=== PATIENT | male | born 1960 | race Caucasian/White ===

== ENCOUNTER 2021-07-25 11:43 | Emergency (ER) | payer OTHER ==
[~2021-07-25] VITALS: Ht 177.8 cm; Wt 95.3 kg
--- NOTE | 2021-07-25 11:49 | NUR ---
[id number], BYSTANDER CALLED, INTOXICATED, UNABLE TO GET UP.
[2021-07-25] MEDS ORDERED: TDAP [DIPH/PERTUSSIS/TET] 0.5 ML VIAL IM ONE ×3 (12:14→12:30)
[2021-07-25 12:44] LABS: BASOPHILS # (AUTO) 0.1 K/uL (0.0-0.2); BASOPHILS % (AUTO) 0.9 % (0.0-2.0); EOSINOPHILS % (AUTO) 0.4 % (0.0-6.0); HEMATOCRIT 41 % (39-51); LYMPHOCYTES # (AUTO) 2.2 K/uL (0.8-4.8); LYMPHOCYTES % (AUTO) 34.3 % (20.0-44.0); MEAN CORPUSCULAR HGB CONC 34 g/dl (31.0-36.0); MEAN CORPUSCULAR VOLUME 93 fL (80-96); MONOCYTES # (AUTO) 0.3 K/uL (0.1-1.30); MONOCYTES % (AUTO) 4.9 % (2.0-12.0); NEUTROPHILS # (AUTO) 3.8 K/uL (1.8-8.9); NEUTROPHILS % (AUTO) 59.5 % (43.0-81.0); PLATELET COUNT (AUTO) 182 K/uL (150-450); WHITE BLOOD COUNT (AUTO) 6.3 K/uL (4.3-11.0)
[2021-07-25 13:07] LABS: CALCIUM, SERUM 8.1 mg/dL (8.5-10.1); CREATININE 0.6 mg/dL (0.6-1.3); POTASSIUM 3.4 mmol/L (3.5-5.1)
[2021-07-25 13:14] LABS: ALBUMIN 3.6 g/dL (3.4-5.0); BILIRUBIN,DIRECT 0.2 mg/dL (0.0-0.2); BILIRUBIN,TOTAL 0.4 mg/dL (0.2-1.0); TOTAL PROTEIN, SERUM 7.3 g/dL (6.4-8.2)
--- NOTE | 2021-07-25 14:10 | NUR ---
PT RESTING IN BED COMFORTABLY, VITAL SIGNS ARE WITHIN NORMAL LIMITS.
--- NOTE | 2021-07-25 19:38 | NUR ---
Patient discharged to home in stable condition. Written and verbal after care instructions given. Patient verbalizes understanding of instruction.
[2021-07-25 22:05] VITALS: BP 133/74
== END 2021-07-25 20:00 | disposition home or self-care (01) ==
LOC: ER 11:49
DX: F10.229 Alcohol dependence with intoxication, unspecified (principal); S00.2 Other and unspecified superficial injuries of eyelid and periocular area; G93.40 Encephalopathy, unspecified; X58.XXXS Exposure to other specified factors, sequela; Y90.8 Blood alcohol level of 240 mg/100 ml or more
CPT/HCPCS: 36415; 70450-TC; 70486-TC; 72125-TC; 80048-TC; 80076-TC; 82962-TC; 85025-TC; 90715; G0480

== ENCOUNTER 2022-01-07 19:51 | Emergency (ER) | payer OTHER ==
[~2022-01-07] VITALS: Ht 172.7 cm; Wt 79.4 kg
--- NOTE | 2022-01-07 19:55 | NUR ---
[id number]. FOUND ON SIDEWALK BY [employer] INTOXICATED. PT AWAKE AND RESPONSIVE. TOLERATING R/A WELL WITH NO SOB. AMBULATORY WITH STEADY GAIT.
--- NOTE | 2022-01-07 20:16 | NUR ---
Patient discharged to home in stable condition. Written and verbal after care instructions given. Patient verbalizes understanding of instruction. PT ambulatory with a steady gait
[2022-01-07 22:02] VITALS: BP 135/77
== END 2022-01-07 20:16 | disposition home or self-care (01) ==
LOC: ER 19:53
DX: F10.129 Alcohol abuse with intoxication, unspecified (principal); Z59.00 Homelessness unspecified; Y90.9 Presence of alcohol in blood, level not specified